=== PATIENT | female | born 1970 | race Caucasian/White ===

== ENCOUNTER 2024-01-31 02:37 | Inpatient (IN) | payer OTHER, SELFPAY ==
[2024-01-31] VITALS (13 sets, daily range): BP systolic 130–171; BP diastolic 53–96; PULSE 57–91; RESP 14–20; TEMP 36.3–37.1; O2SAT 93–100; BMI 33.8
--- NOTE | 2024-01-31 | ECG_ITS ---
Test Reason : NAUSEA/VOMITING Blood Pressure : / mmHG Vent. Rate : 068 BPM Atrial Rate : 068 BPM P-R Int : 158 ms QRS Dur : 082 ms QT Int : 378 ms P-R-T Axes : 050 024 018 degrees QTc Int : 401 ms Normal sinus rhythm Normal ECG No previous ECGs available Referred By: Generic ED Physician Electronically Signed By:OLGA VIVEROS
--- NOTE | ~2024-01-31 | CT_ITS ---
EXAMINATION: CT ABDOMEN AND PELVIS WITH CONTRAST CLINICAL INFORMATION: Right lower quadrant pain. COMPARISON: None available. TECHNIQUE: Multidetector volumetric images were obtained from the superior aspect of the liver through the pubic symphysis following administration 85 mL of Omnipaque 350 intravenous contrast. Sagittal and coronal reformatted images were obtained on the technologist's workstation. Oral contrast: No This CT examination was performed using dose optimization techniques as appropriate, variously including the following: *Automated exposure control *Adjustment of mA and/or kV according to patient size (this includes techniques or standardized protocols for targeted exams where dose is matched to indication/reason for exam; i.e. extremities or head) *Use of iterative reconstruction technique DLP: 750 mGy-cm FINDINGS: LUNG BASES: There is minimal scarring at the lung bases. LIVER, GALLBLADDER, AND BILIARY TREE: The liver is normal in size, shape, and attenuation. No focal hepatic lesion or biliary ductal dilatation is present. The gallbladder is unremarkable with no evidence of radiopaque gallstones, gallbladder wall thickening, or obvious pericholecystic inflammatory changes. PANCREAS: Unremarkable. SPLEEN: Unremarkable. ADRENAL GLANDS: Unremarkable. KIDNEYS AND URETERS: The kidneys are normal in size, shape, and attenuation. No hydronephrosis, hydroureter, or calculi seen. No perinephric stranding. There is a subcentimeter cyst mid pole right kidney. BLADDER: Unremarkable. GASTROINTESTINAL TRACT: There has been prior gastric surgery. There is no evidence for bowel obstruction. There is a dilated retrocecal and thickened appendix measuring up to 1.2 cm with mild surrounding infiltrative change. ABDOMINAL WALL: No significant hernia is appreciated. LYMPH NODES: Normal. VASCULAR: Unremarkable. PELVIC VISCERA: Unremarkable. OSSEOUS STRUCTURES: Unremarkable. CT/CT abdomen pelvis w IV con IMPRESSION: Acute appendicitis. Fleischner guidelines were followed. Electronically signed by: Max Kurtz MD 01/31/2024 05:46 AM EST
[2024-01-31 03:22] LABS: Hematocrit 40.5 % (37.0-47.0); Hemoglobin 14.1 g/dl (12.0-16.0); Mean Corpuscular HGB Conc 34.8 g/dl (31.0-35.0); Mean Corpuscular Hemoglobin 30.1 pg (27.0-33.0); Mean Corpuscular Volume 86.4 fL (80.0-98.0); Mean Platelet Volume 9.6 fL (9.4-12.3); Platelet Count 289 X10*3/uL (160-400); Red Blood Count 4.69 X10*6/uL (4.20-5.50); Red Cell Distribution Width 12.3 % (11.0-16.0); White Blood Count 12.5 X10*3/uL (4.8-10.8)
[2024-01-31 03:37] LABS: Alanine Aminotransferase 13 U/L (0-31); Albumin Level 4.1 g/dL (3.5-5.0); Alkaline Phosphatase 75 U/L (39-117); Anion Gap 15 (12-20); Aspartate Amino Transferase 21 U/L (5-31); Bilirubin Total 0.7 mg/dL (0.0-1.0); Blood Urea Nitrogen 13 mg/dL (9-16); Calcium 9.6 mg/dL (8.4-10.2); Carbon Dioxide 24 mmol/L (22-29); Chloride 104 mmol/L (96-108); Creatinine Clr Calc Pharmacy 69.6; Estimated Glomerular Filt Rate 54; Glucose Random 126 mg/dL (60-115); Lipase 60 U/L (8-78); Magnesium 2.1 mg/dL (1.6-2.6); Potassium 4.3 mmol/L (3.3-5.1); Sodium 139 mmol/L (135-145); Total Protein 7.3 g/dL (6.5-8.0)
--- NOTE | 2024-01-31 03:45 | PC.NURSE ---
pt from home, a&ox4, respirations even and unlabored. pt reports sudden onset of abdominal pain, nausea and vomiting starting earlier today. pt reports she has some radiation to the right lower back. pt denies any trauma to the site and denies any urinary symptoms. pt denies diarrhea, chest pain and sob. pt reports it feels better when she squats . reports poor PO intake.
[2024-01-31 03:58] LABS: Troponin-I High Sensitivity < 2.7 ng/L (<3.5-17.0)
--- NOTE | 2024-01-31 04:43 | ED.ABDPAIN ---
HPI - Abdominal Pain General Chief Complaint: Abdominal Pain Stated Complaint: right lower stomach pain Time Seen by Provider: 01/31/24 04:41 Source: patient Mode of arrival: ambulatory Limitations: no limitations History of Present Illness ED Provider: HPI narrative: Patient otherwise healthy since 9 8th a.m. of 01/29 noticed pain in the mid abdomen slowly radiating to the right lower abdomen and back all day pain continued to increase did not feel hungry did not eat much all day no fever or chills no urinary symptoms pain increases on ambulation Related Data Allergies Allergy/AdvReac Type Severity Reaction Status Date / Time aspirin [ASPIRIN] Allergy Severe SHORTNESS Verified 01/31/24 05:03 OF BREATH codeine [CODEINE] Allergy Severe SHORTNESS Verified 01/31/24 05:03 OF BREATH peanut [PEANUT] Allergy Severe ANAPHYLAXIS Verified 01/31/24 05:03 shellfish derived Allergy Severe ANAPHYLAXIS Verified 01/31/24 05:03 dihydroxyacetone Allergy Anaphylaxis Verified 01/31/24 05:03 [From Chromelin] Latex, Natural Rubber Allergy Difficulty Verified 01/31/24 05:03 Swallowing Review of Systems Review of Systems Yes all other systems are reviewed and are negative [facility] Social History Social History Smoked in Last 30 Days: No Use of substances other than those prescribed or required for medical reasons: No Advance Directives: No Patient : No Physical Exam ED Vital Signs: Vital Signs - 24 hr 01/31/24 02:42 01/31/24 05:29 01/31/24 06:25 Temperature 97.9 F 98.1 F 98.0 F Pulse Rate 91 85 85 Respiratory Rate 18 15 16 Blood Pressure 141/96 H 148/53 H 171/82 H Pulse Oximetry 97 98 98 Oxygen Delivery Method Room Air Room Air Room Air BMI result Body Mass Index 33.8 Appearance: Alert. Oriented X3. No acute distress. Eyes: PERRLA, No Nystagmus ENT: Pharynx normal. Oral Mucosa moist Neck: Normal inspection. Neck supple. CVS: Normal heart rate and rhythm. Pulses normal. Respiratory: No respiratory distress. Equal air entry bilateral, no wheezing/rales/rhonchi Abdomen: Soft , tender RLQ with guarding Bowel sounds are present, no mass palpable, no CVA tenderness Skin: Skin warm and dry. Normal skin color. Normal skin turgor. Extremities: No lower extremity edema. No calf tenderness Neuro: Oriented X 3. No motor deficit. Medical Decision Making Medical Decision Making [facility] Narrative: Patient with uncomplicated acute appendicitis pain started 24 hours ago will admit patient to surgeon for appendectomy Differential Diagnosis Differential Diagnoses: The differential diagnosis associated with the presentation includes Admission/Observation Consideration of admission/observation: Escalation of care including admission/observation considered Consult Healthcare Provider Management of the patient was discussed with: Reed Repairer Lab Data [facility] Lab Attestation statement: I reviewed the patient's lab results. 01/31/24 03:18 01/31/24 03:18 Labs: Lab Results 01/31/24 01/31/24 Range/Units 03:18 05:00 WBC 12.5 H (4.8-10.8) X10*3/uL RBC 4.69 (4.20-5.50) X10*6/uL Hgb 14.1 (12.0-16.0) g/dl Hct 40.5 (37.0-47.0) % MCV 86.4 (80.0-98.0) fL MCH 30.1 (27.0-33.0) pg MCHC 34.8 (31.0-35.0) g/dl RDW 12.3 (11.0-16.0) % Plt Count 289 (160-400) X10*3/uL MPV 9.6 (9.4-12.3) fL Absolute Nucleated RBC 0.000 (0.0-0.012) X10*3/uL Nucleated RBC % (auto) 0.0 (0.0-0.2) /100WBC Sodium 139 (135-145) mmol/L Potassium 4.3 (3.3-5.1) mmol/L Chloride 104 (96-108) mmol/L Carbon Dioxide 24 (22-29) mmol/L Anion Gap 15 (12-20) BUN 13 (9-16) mg/dL Creatinine 1.06 (0.5-1.4) mg/dL Estim Creat Clear Calc 69.6 Estimated GFR 54 Random Glucose 126 H (60-115) mg/dL Lactic Acid 0.9 (0.5-2.0) mmol/L Calcium 9.6 (8.4-10.2) mg/dL Magnesium 2.1 (1.6-2.6) mg/dL Total Bilirubin 0.7 (0.0-1.0) mg/dL AST 21 (5-31) U/L ALT 13 (0-31) U/L Alkaline Phosphatase 75 (39-117) U/L Troponin I High Sens < 2.7 (<3.5-17.0) ng/L Total Protein 7.3 (6.5-8.0) g/dL Albumin 4.1 (3.5-5.0) g/dL Lipase 60 (8-78) U/L Independent Interpretation I performed an independent interpretation of an: CT Scan Radiology Impression Discussion of test interpretation with radiology: I have reviewed the radiologist's reading. Radiologist Impression: [place] [id number] CT Scan Report Signed Patient: Katelynn Razo MR#: [id number] : 1970 Acct:[id number] Age/Sex: 53 / F ADM Date: 01/31/24 Loc: .ED Attending Dr: Ordering Physician: Bharath Bruce MD Date of Service: 01/31/24 Procedure(s): CT abdomen pelvis w IV con Accession Number(s): [id number] cc: Corey Maher MD; Bharath Bruce MD~ EXAMINATION: CT ABDOMEN AND PELVIS WITH CONTRAST CLINICAL INFORMATION: Right lower quadrant pain. COMPARISON: None available. TECHNIQUE: Multidetector volumetric images were obtained from the superior aspect of the liver through the pubic symphysis following administration 85 mL of Omnipaque 350 intravenous contrast. Sagittal and coronal reformatted images were obtained on the technologist's workstation. Oral contrast: No This CT examination was performed using dose optimization techniques as appropriate, variously including the following: *Automated exposure control *Adjustment of mA and/or kV according to patient size (this includes techniques or standardized protocols for targeted exams where dose is matched to indication/reason for exam; i.e. extremities or head) *Use of iterative reconstruction technique DLP: 750 mGy-cm FINDINGS: LUNG BASES: There is minimal scarring at the lung bases. LIVER, GALLBLADDER, AND BILIARY TREE: The liver is normal in size, shape, and attenuation. No focal hepatic lesion or biliary ductal dilatation is present. The gallbladder is unremarkable with no evidence of radiopaque gallstones, gallbladder wall thickening, or obvious pericholecystic inflammatory changes. PANCREAS: Unremarkable. SPLEEN: Unremarkable. ADRENAL GLANDS: Unremarkable. KIDNEYS AND URETERS: The kidneys are normal in size, shape, and attenuation. No hydronephrosis, hydroureter, or calculi seen. No perinephric stranding. There is a subcentimeter cyst mid pole right kidney. BLADDER: Unremarkable. GASTROINTESTINAL TRACT: There has been prior gastric surgery. There is no evidence for bowel obstruction. There is a dilated retrocecal and thickened appendix measuring up to 1.2 cm with mild surrounding infiltrative change. ABDOMINAL WALL: No significant hernia is appreciated. LYMPH NODES: Normal. VASCULAR: Unremarkable. PELVIC VISCERA: Unremarkable. OSSEOUS STRUCTURES: Unremarkable. CT/CT abdomen pelvis w IV con IMPRESSION: Acute appendicitis. Fleischner guidelines were followed. Electronically signed by: Max Kurtz MD 01/31/2024 05:46 AM [facility] Medications Administered Discontinued Medications Generic Name Dose Route Start Last Admin Trade Name Freq PRN Reason Stop Dose Admin Sodium Chloride 1,000 mls @ 999 mls/hr 01/31/24 04:45 01/31/24 06:29 Ns IV 01/31/24 05:45 Infused .Q1H1M ONE Infusion Piperacillin Sod/Tazobactam 50 mls @ 100 mls/hr 01/31/24 04:46 01/31/24 05:37 Sod 3.375 gm/ Sodium Chloride IV 01/31/24 05:15 Infused ONCE ONE Infusion Acetaminophen 1,000 mg in 100 mls @ 400 mls/hr 01/31/24 06:12 01/31/24 06:48 Ofirmev IV 01/31/24 06:26 Infused ONCE ONE Infusion Iohexol 85 ml 01/31/24 05:22 01/31/24 05:23 Iohexol 350 Mg/Ml 100 Ml Infus..Btl IV 01/31/24 05:23 85 ml ONCE ONE Administration Morphine Sulfate 4 mg 01/31/24 04:45 01/31/24 04:57 Morphine Sulfate 4 Mg/Ml Cartridge IVPUSH 01/31/24 04:46 Not Given ONCE ONE Protocol Ondansetron HCl 4 mg 01/31/24 04:45 01/31/24 05:04 Ondansetron Hcl 4 Mg/2 Ml Vial IVPUSH 01/31/24 04:46 4 mg ONCE ONE Administration Discharge Plan Discharge Clinical Impression: Acute appendicitis Patient Disposition: Admitted As Inpatient Print Language: Lithuanian
[2024-01-31] MEDS: 0.9 % Sodium Chloride 1,000 ML 999 ML IV (05:04)
[2024-01-31] MEDS: ondansetron HCL 4 MG/2 ML VIAL IVPUSH ×3 (05:04→17:35)
[2024-01-31] MEDS: Piperacillin Sodium/Tazobactam 3.375 GM in 0.9 % Sodium Chloride 50 ML IV ×3 (05:05→23:47)
--- NOTE | 2024-01-31 05:11 | PC.NURSE ---
20G placed in left wrist, pt medicated per may.
--- NOTE | 2024-01-31 05:20 | PC.NURSE ---
pt to CT at this time.
[2024-01-31] MEDS: iohexoL 350 MG/ML 100 ML INFUS..BTL 85 ML IV (05:23)
[2024-01-31 05:27] LABS: Lactic Acid 0.9 mmol/L (0.5-2.0)
[2024-01-31] MEDS: Acetaminophen 1,000 MG/100 ML PIGGYBACK 400 MG IV (06:28)
[2024-01-31] MEDS: Morphine Sulfate 4 MG/ML CARTRIDGE IVPUSH ×2 (08:57→11:22)
--- NOTE | 2024-01-31 09:00 | PC.NURSE ---
pt is alert and oriented, skin pwd, respirations even and unlabored, pt is reporting right sided abd pain 08/11 denies nausea at this time
[2024-01-31 09:14] LABS: Appearance Urine Clear; Color Urine Yellow; Glucose Urine UA Negative (Negative); Leukocyte Esterase Urine Negative (Negative); Nitrite Urine Negative (Negative); PH 6.5 (5.0-9.0); Specific Gravity - Urine >= 1.030 (1.005-1.025); Urine Blood Negative (Negative); Urine Ketones Trace mg/dL (Negative); Urine Protein Negative (Neg-Trace)
--- NOTE | 2024-01-31 09:18 | PHA.MEDREC ---
Addendum entered by Mary Seals RPh 01/31/24 09:28: REVIEWED Original Note: Pharmacy Consult ? Medication Reconciliation Pharmacy has completed the medication reconciliation. Confirmed medications with patient. Patient confirmed she has not started her Amitriptyline 25mg tabs due to not feeling great, but states she has them at home to start. She confirmed the Vitamin B-12 injection once a month and states she last injected it 01/26. She states she is still taking Vitamin D2 (50,000un) tabs once a week on but states she was not able to take it yesterday 01/29 due to not feeling great but states she took it 01/23. She confirmed she is still taking Levothyroxine and confirmed she takes 50mcg tabs once daily. She confirmed she last took the Levothyroxine 50mg tab on Saturday.
--- NOTE | 2024-01-31 10:00 | PC.NURSE ---
pt reports that the pain is still there, pain at 6/10 if the pt moves out of her position
--- NOTE | 2024-01-31 11:11 | PC.NURSE ---
report given to sss
[2024-01-31] MEDS: 0.9 % Sodium Chloride 1,000 ML 125 ML IVCONT ×3 (11:23→21:29)
--- NOTE | 2024-01-31 11:35 | P.HPGS_ITS ---
History of Present Illness History of Present Illness Date of Service: 01/31/24 Chief complaint: appendicitis Narrative: Katelynn Razo is a 53 year old female who comes in to [facility] complaining of 24 hrs of right sided abdo pain - never had pain like this before, no sick ocntacts no fevers. elevated wbc and ct showing thickened inflamation of the appendix. Review of Systems Review of Systems: Yes all other systems are reviewed and are negative PMFSH Social History Social History Smoked in Last 30 Days: No Use of substances other than those prescribed or required for medical reasons: No Advance Directives: No Patient : No Meds Allergies Allergy/AdvReac Type Severity Reaction Status Date / Time aspirin [ASPIRIN] Allergy Severe SHORTNESS Verified 01/31/24 05:03 OF BREATH codeine [CODEINE] Allergy Severe SHORTNESS Verified 01/31/24 05:03 OF BREATH peanut [PEANUT] Allergy Severe ANAPHYLAXIS Verified 01/31/24 05:03 shellfish derived Allergy Severe ANAPHYLAXIS Verified 01/31/24 05:03 dihydroxyacetone Allergy Anaphylaxis Verified 01/31/24 05:03 [From Chromelin] Latex, Natural Rubber Allergy Difficulty Verified 01/31/24 05:03 Swallowing Active Medications: Current Medications Piperacillin Sod/Tazobactam (Sod 3.375 gm/ Sodium Chloride) 50 mls @ 100 mls/hr IV Q6H OMAR Sodium Chloride (Ns) 1,000 mls @ 125 mls/hr IVCONT .Q8H OMAR Last Admin: 01/31/24 11:23 Dose: 125 mls/hr Morphine Sulfate (Morphine Sulfate 4 Mg/Ml Cartridge) 4 mg IVPUSH Q3H PRN; Protocol PRN Reason: Pain, Severe (Pain Scale 7-10) Last Admin: 01/31/24 11:22 Dose: 4 mg Home Medications ?Medication ?Instructions ?Recorded ?Confirmed ?Last Taken ?Type cyanocobalamin (vitamin B-12) 1,000 mcg IM QMONTH 01/31/24 01/31/24 01/27/24 History 1,000 mcg/mL injection solution ergocalciferol (vitamin D2) 1,250 1,250 mcg PO TH 01/31/24 01/31/24 01/23/24 History mcg (50,000 unit) capsule (Vitamin D2) levothyroxine 50 mcg tablet 50 mcg PO DAILY@0600 01/31/24 01/31/24 01/29/24 History (Synthroid) Physical Exam Vital Signs: Vital Signs: Last Vital Signs Temp 97.7 F 01/31/24 08:54 Pulse 66 01/31/24 11:19 Resp 20 01/31/24 11:19 BP 145/75 H 01/31/24 11:19 Pulse Ox 97 01/31/24 11:19 O2 Del Method Room Air 01/31/24 11:19 BMI result Body Mass Index 33.8 Const: General: cooperative, healthy appearing and acute distress moderate Orientation/consciousness: patient oriented x3 Resp: Auscultation: clear to auscultation bilaterally Cardio: Rate: regular rate Rhythm: regular rhythm GI: Other: abdomen is soft - tender the right lower quadrant with guarding Neuro: General: patient oriented x3 Psych: Affect: normal affect Results Results Labs: Short CBC 01/31/24 Range/Units 03:18 WBC 12.5 H (4.8-10.8) X10*3/uL Hgb 14.1 (12.0-16.0) g/dl Hct 40.5 (37.0-47.0) % Plt Count 289 (160-400) X10*3/uL BMP 01/31/24 03:18 Sodium 139 Potassium 4.3 Chloride 104 Carbon Dioxide 24 BUN 13 Creatinine 1.06 Calcium 9.6 Liver Function 01/31/24 Range/Units 03:18 Total Bilirubin 0.7 (0.0-1.0) mg/dL AST 21 (5-31) U/L ALT 13 (0-31) U/L Alkaline Phosphatase 75 (39-117) U/L Albumin 4.1 (3.5-5.0) g/dL Urine 01/31/24 Range/Units 09:03 Urine Color Yellow Urine Appearance Clear Urine pH 6.5 (5.0-9.0) Ur Specific [place] >= 1.030 H (1.005-1.025) Urine Protein Negative (Neg-Trace) mg/dL Urine Glucose (UA) Negative (Negative) mg/dL Abdomen CT scan report/results: report reviewed and image reviewed CT scan - pelvis: report reviewed and image reviewed Assessment and Plan (1) Acute appendicitis: Status: Acute Plan 53 year old female with acute appendicitis - for lap appy possible open - risks and benefits discussed with pt including but not limited to infection and bleeding and open procedure and bowel injury - she wishes to proceed. admit npo ivf iv antibx. Quality Stroke Does the patient have a stroke diagnosis?: No VTE Prior VTE?: No VTE Risk Level:: Surgical - low VTE Device Contraindication: N/A - Device Ordered VTE Drug Contraindication: Treatment Not Indicated Procedures Date of Service Date of Service: 01/31/24
--- NOTE | 2024-01-31 11:50 | P.CONAN_ITS ---
HPI - Anesthesia Eval Consult details Narrative: 53 yo F presenting for laparoscopic appendectomy PMFSH Active Problems Active Problems: All Active Problems Acute appendicitis (Acute) Family History Family history of problems with anesthesia: No Surgical History History of Problems with Anesthesia: No Social History Social History Smoked in Last 30 Days: No Use of substances other than those prescribed or required for medical reasons: No Advance Directives: No Patient : No Meds Allergies Allergy/AdvReac Type Severity Reaction Status Date / Time aspirin [ASPIRIN] Allergy Severe SHORTNESS Verified 01/31/24 05:03 OF BREATH codeine [CODEINE] Allergy Severe SHORTNESS Verified 01/31/24 05:03 OF BREATH peanut [PEANUT] Allergy Severe ANAPHYLAXIS Verified 01/31/24 05:03 shellfish derived Allergy Severe ANAPHYLAXIS Verified 01/31/24 05:03 dihydroxyacetone Allergy Anaphylaxis Verified 01/31/24 05:03 [From Chromelin] Latex, Natural Rubber Allergy Difficulty Verified 01/31/24 05:03 Swallowing Active Medications: Current Medications Piperacillin Sod/Tazobactam (Sod 3.375 gm/ Sodium Chloride) 50 mls @ 100 mls/hr IV Q6H OMAR Sodium Chloride (Ns) 1,000 mls @ 125 mls/hr IVCONT .Q8H OMAR Last Admin: 01/31/24 11:23 Dose: 125 mls/hr Morphine Sulfate (Morphine Sulfate 4 Mg/Ml Cartridge) 4 mg IVPUSH Q3H PRN; Protocol PRN Reason: Pain, Severe (Pain Scale 7-10) Last Admin: 01/31/24 11:22 Dose: 4 mg Home Medications ?Medication ?Instructions ?Recorded ?Confirmed ?Last Taken ?Type cyanocobalamin (vitamin B-12) 1,000 mcg IM QMONTH 01/31/24 01/31/24 01/27/24 History 1,000 mcg/mL injection solution ergocalciferol (vitamin D2) 1,250 1,250 mcg PO TH 01/31/24 01/31/24 01/23/24 History mcg (50,000 unit) capsule (Vitamin D2) levothyroxine 50 mcg tablet 50 mcg PO DAILY@0600 01/31/24 01/31/24 01/29/24 History (Synthroid) Exam Exam Date and Time: 01/31/24 1150 Height,Weight and Vital Signs: Height 5 ft 5 in Weight 92.2 kg Last Vital Signs Temp 97.7 F 01/31/24 08:54 Pulse 66 01/31/24 11:19 Resp 20 01/31/24 11:19 BP 145/75 H 01/31/24 11:19 Pulse Ox 97 01/31/24 11:19 O2 Del Method Room Air 01/31/24 11:19 Pertinent Lab Results Pertinent Lab Results: Laboratory Tests 01/31/24 01/31/24 01/31/24 03:18 05:00 09:03 WBC 12.5 H RBC 4.69 Hgb 14.1 Hct 40.5 MCV 86.4 MCH 30.1 MCHC 34.8 RDW 12.3 Plt Count 289 MPV 9.6 Absolute Nucleated RBC 0.000 Nucleated RBC % (auto) 0.0 Sodium 139 Potassium 4.3 Chloride 104 Carbon Dioxide 24 Anion Gap 15 BUN 13 Creatinine 1.06 Estim Creat Clear Calc 69.6 Estimated GFR 54 Random Glucose 126 H Lactic Acid 0.9 Calcium 9.6 Magnesium 2.1 Total Bilirubin 0.7 AST 21 ALT 13 Alkaline Phosphatase 75 Troponin I High Sens < 2.7 Total Protein 7.3 Albumin 4.1 Lipase 60 Urine Color Yellow Urine Appearance Clear Urine pH 6.5 Ur Specific [place] >= 1.030 H Urine Protein Negative Urine Glucose (UA) Negative Urine Ketones Trace Urine Blood Negative Urine Nitrite Negative Ur Leukocyte Esterase Negative Airway Mallampati Class: I TM Dist: >3cm Neck ROM: Full Loose/Missing/Broken Teeth: No (patient denies any loose or broken teeth) Heart: S1S2 Lungs: CTAB Assessment and Plan Assessment Anesthesia Assessment: Anesthesia Plan Discussed and Chart Reviewed Final Anesthetic Review Family History of Problems with Anesthesia: No History of Problems with Anesthesia: No ASA Class: II and Emergency Final Preanesthetic Review: No Changes in Pt Med Stat, Meds/Allgs Chart Reviewed, Consent Obtained/Reviewed and Anes Risks/Benef Reviewed Patient Risk: Low Procedure Risk: Low Anesthetic Plan Anesthetic Plan: GA and Agree w/ Assess. and Plan Disposition: Standard PACU
--- NOTE | 2024-01-31 13:09 | W.PM.OPN ---
Operative Note Operative Note Date of Service: 01/31/24 Narrative: Preop diagnosis-- acute appendicitis Postop diagnosis--acute appendicitis Procedure done--laparoscopic appendectomy Surgeon--Deb Anesthesia--general endotracheal tube anesthesia Patient is a 53-year-old female comes in with a 24 hour history of abdominal pain on the right elevated white count CT scan showing thickening inflamed appendix retrocecal comes in now for laparoscopic appendectomy after been admitted IV antibiotics NPO. Findings--acutely inflamed appendix Procedure-- Patient was brought to the operative room under Anesthesia guidance was intubated. She had compression stockings placed before induction received preoperative antibiotics. Her abdomen was prepped and draped in standard surgical fashion. An infraumbilical incision was created after numbing up the area with a 0.25% Marcaine with epinephrine. Dissection was carried down to the anterior abdominal wall fascia which was grasped with Zaida's and transected. 0 Vicryl pursestring suture placed and the Mata trocar introduced. Pneumoperitoneum was established to 15 mmHg pressure. Two 5 mm port were placed under direct visualization using local 1 in the suprapubic area and 1 in the left lower quadrant area. There were adhesions noted of the uterus to the anterior abdominal wall lower down. The cecum was identified in the right lower quadrant and there was some inflammatory changes here. The appendix was stuck to the cecum laterally and a little inferiorly in the retrocecal fashion. The area where the appendix merged with the cecum was identified and dissected out with the [place]. The Endo-JAYDEN purple 45 load was used to fire across the base of the appendix here. The LigaSure was then used to come across the appendix mobilizing it laterally away from the pelvic wall. The appendix was then removed from the inferior port site and then sent off for pathology. The appendix itself was pretty short so it was examined and the tip of the appendix was fine and the complete appendix was confirmed to be removed. The retrocecal area was identified again and checked suctioned and irrigation of fluid here. The stump site looked good in the mesentery looked good with no bleeding. The ports were then removed under direct visualization in the pursestring suture closed. Little more local was used. Monocryl suture was used to close the skin edges with Steri-Strips at the end of the case all sponge instrument needle counts were correct estimated blood loss was about 7 cc specimens sent was the appendix. The patient was extubated returned stable to recovery room
--- NOTE | 2024-01-31 18:43 | PM.EVENT ---
Event Note Date of Service: 01/31/24 Event Note: pt says she take ibuprofen po for pain after her surgeries despite asa allergy Time Spent With Patient Time: Total time managing care of this patient today ____ minutes.
[2024-01-31] MEDS: Famotidine 20 MG TABLET PO (21:29)
[2024-02-01 02:52] VITALS: BP 162/80; PULSE 66; RESP 18; TEMP 36.8; O2SAT 94
[2024-02-01] MEDS: Ibuprofen 600 MG TABLET PO ×2 (03:10→10:21)
[2024-02-01] MEDS: 0.9 % Sodium Chloride 1,000 ML 125 ML IVCONT (05:11)
[2024-02-01] MEDS: Piperacillin Sodium/Tazobactam 3.375 GM in 0.9 % Sodium Chloride 50 ML IV ×2 (05:11→12:53)
[2024-02-01 07:38] VITALS: BP 166/80; PULSE 70; RESP 16; TEMP 37.7; O2SAT 98
[2024-02-01] MEDS: Famotidine 20 MG TABLET PO (09:21)
--- NOTE | 2024-02-01 09:57 | MHC.CM.PN ---
Addendum entered by Beverley Moffett 02/01/24 13:14: PT WILL DC HOME TODAY WITH NO SERVICES Original Note: PT REPORTS SHE LIVES WITH HER PARENTS AND IS INDEPENDENT WITH CARE SHE HAS NO DME AND NO SERVICES SHE DECLINES TO COMPLETE A HCP PCP: YURY DILL DCP: HOME NO SERVICES VIA SELF TRANSPORT
[2024-02-01 11:52] VITALS: O2SAT 95
--- NOTE | 2024-02-01 13:42 | HO.POSTANES ---
Post Anesthesia Evaluation Post Anesthesia Evaluation Date of Service: 02/01/24 Vital Signs: Vital Signs Temp Pulse Resp BP Pulse Ox O2 Del Method 02/01/24 11:52 95 Room Air 02/01/24 07:38 99.8 F 70 16 166/80 H 98 Room Air 02/01/24 02:52 98.2 F 66 18 162/80 H 94 Room Air Anesthesia: General Endotracheal-GETA Mental Status: Awake Pain Control: Satisfactory Nausea/Vomiting: None Hydration: Adequate Anesthesia-Related Issues: No Anes. Related Issues
--- NOTE | 2024-02-01 13:52 | PM.DS ---
DS: Providers Provider Date of Service: 02/01/24 Date of admission: 01/31/24 08:46 Date of discharge: 02/01/24 Primary care physician: Corey Maher MD Admitting clinician: Tayler Boyd Attending physician on discharge: Tayler Boyd DS: Diagnosis Discharge Diagnosis (1) Acute appendicitis: Start date: 01/31/24 Status: Acute DS: Summary Hospital Course Hospital Course: pt presented with acute appendicitis and underwent lap appy - did well and was dc next day with po ibuprofen Status at Discharge Cognitive/behavioral status at discharge: good Functional status at discharge: independent ambulation Time Attestation Total time managing care of this patient today: 30 mintues. Discharge Coordination Time (in mins): 30 Quality: Safe Use of Opioids Does Pt have an Active Cancer Diagnosis on the Problem List?: No Quality: Stroke Does the patient have a stroke diagnosis?: No Reason for No Anti-thrombotic at DC: Drug treatment not indicated Reason for No Anticoagulant at DC: Drug treatment not indicated Physical Exam Vital Signs: Vital Signs: Last Vital Signs Temp 99.8 F 02/01/24 07:38 Pulse 70 02/01/24 07:38 Resp 16 02/01/24 07:38 BP 166/80 H 02/01/24 07:38 Pulse Ox 95 02/01/24 11:52 O2 Del Method Room Air 02/01/24 11:52 O2 Flow Rate 2 01/31/24 13:08 BMI result Body Mass Index 33.8 GI: Other: tender at umbilicus but all good DS: Data Data Completed and Pending Pending studies at discharge: Pending at discharge 01/31/24 12:34 Surgical [PTH] Routine Labs on day of discharge: Preliminary micro results at discharge 01/31/24 05:02 Blood Culture - Preliminary Blood - Venous No growth after 24 hours. 01/31/24 05:00 Blood Culture - Preliminary Blood - Venous No growth after 24 hours. Discharge Plan Discharge Anticipated Discharge Date/Time: 02/01/24 14:00 Patient Disposition: Home, Self-Care Discharge Diagnosis: appendicitis Referrals: Corey Maher MD [Primary Care Provider] - 1 Week Discharge Medications: New ibuprofen 600 mg tablet 600 mg PO Q8H PRN (Reason: pain) Qty: 14 0RF docusate sodium [Colace] 100 mg capsule 100 mg PO BID Qty: 20 0RF Continued levothyroxine [Synthroid] 50 mcg tablet 50 mcg PO DAILY@0600 cyanocobalamin (vitamin B-12) 1,000 mcg/mL solution 1,000 mcg IM QMONTH ergocalciferol (vitamin D2) [Vitamin D2] 1,250 mcg (50,000 unit) capsule 1,250 mcg PO TH Discharge Orders: Discharge Order (Routine); Ordered 02/01/24 Ordered By: Tayler Boyd Diet: Advance to usual diet Activity on Discharge: No heavy lifting Stand Alone Forms: Patient Portal Discharge page Print Language: Pashto Care Plan Goals: ambulate regular diet no lifting more than 10 lbs follow up in office next week. call on saturday for a follow up appointment with general surgery Health Concerns: call for fever 101 and bleeding Plan of Treatment: as above Assessment: doing well s.p lap appy tole po diet and pain meds with just ibuprofen
== END 2024-02-01 15:14 | disposition home or self-care (01) | DRG 234 ==
LOC: HO.ED 07:27 → HO.EDOVER 08:56 → HO.S3 11:04
PROVIDERS: Admitting Provider Surgery; Emergency Provider Internal Medicine; PCP Internal Medicine; Visit Provider Surgery
PROC: 0DTJ4ZZ Resection of Appendix, Percutaneous Endoscopic Approach (ICD-10-PCS; CPT 44970; principal; 2024-01-31 11:45)
DX: K35.80 Unspecified acute appendicitis (principal); Z79.890 Hormone replacement therapy; Z91.040 Latex allergy status; Z79.899 Other long term (current) drug therapy
CPT/HCPCS: 44970; 36415; 74177; 80053; 81003; 83605; 83690; 83735; 84484; 85027; 87040; 88304; 93005; 99221; 99285; J0131; J0330; J1100; J1171; J2003; J2270; J2371; J2405; J2543; J2704; J3010; Q9967

== ENCOUNTER → 2024-01-31 03:37 | Outpatient (BNV) | payer OTHER, SELFPAY | PROVIDERS: Admitting Provider Surgery; Emergency Provider Internal Medicine; PCP Internal Medicine; Visit Provider Internal Medicine | DX: K35.80 Unspecified acute appendicitis (principal); R11.2 Nausea with vomiting, unspecified | CPT/HCPCS: 93010 ==

== ENCOUNTER → 2024-01-31 08:46 | Outpatient (BNV) | payer OTHER, SELFPAY | PROVIDERS: Admitting Provider Surgery; Emergency Provider Internal Medicine; PCP Internal Medicine; Visit Provider Surgery | DX: K35.80 Unspecified acute appendicitis (principal) | CPT/HCPCS: 44970; 99024; 99222; 99499 ==